=== PATIENT | male | born 1965 | race Caucasian/White ===

== ENCOUNTER 2021-08-30 22:59 | Emergency (ER) | payer SELFPAY ==
[2021-08-30 23:48] LABS: HEMOGLOBIN 14.8 gm/dl (14.0-17.5); RED BLOOD COUNT 4.45 M/UL (4.20-5.50); WHITE BLOOD COUNT 8.2 K/UL (4.5-11.0)
[2021-08-31 00:22] LABS: BUN/CREATININE RATIO 16 (0-10)
== END 2021-08-31 06:45 | disposition home or self-care (01) ==
LOC: ER1 22:59 → EDBD 22:59 → ER1 22:59
PROVIDERS: Preventive Medicine Occupational Medicine
DX: F10.129 Alcohol abuse with intoxication, unspecified (principal); R41.0 Disorientation, unspecified; E66.9 Obesity, unspecified
CPT/HCPCS: 36600; 51702; 70450; 71045; 80053; 80307; 81001; 82009; 82140; 82550; 82553; 82803; 83605; 83690; 83874; 83880; 84439; 84443; 84484; 85025; 85610; 85652; 85730; 86140; 87086; 99285; G0480; J2310